=== PATIENT | male | born 1950 | race Caucasian/White ===

== ENCOUNTER → 2019-01-09 09:23 | Outpatient (CLI) | payer MEDICARE, SELFPAY ==
[2019-01-09 11:53] LABS: Ferritin 6 ng/mL (8-388)
== END ==
PROVIDERS: Visit Provider Internal Medicine Medical Oncology
DX: D50.9 Iron deficiency anemia, unspecified (principal)
CPT/HCPCS: 36415; 82728

== ENCOUNTER 2019-01-20 08:22 | Outpatient (CLI) | payer MEDICARE, SELFPAY ==
[2019-01-20 08:50] VITALS: BP 133/83; PULSE 63; RESP 18; TEMP 36.6; O2SAT 97
[2019-01-20 09:25] VITALS: BP 131/81; PULSE 68; RESP 18; O2SAT 98
== END 2019-01-20 09:31 | disposition home or self-care (01) ==
LOC: INF 08:22
PROVIDERS: Visit Provider Internal Medicine Medical Oncology
DX: D50.8 Other iron deficiency anemias (principal); T45.4X5A Adverse effect of iron and its compounds, initial encounter
CPT/HCPCS: 96365; J1439

== ENCOUNTER 2019-01-27 08:39 | Outpatient (CLI) | payer MEDICARE, SELFPAY ==
[2019-01-27 09:00] VITALS: BP 123/77; PULSE 54; RESP 18; TEMP 36.6; O2SAT 98
[2019-01-27 09:30] VITALS: BP 120/72; PULSE 56; RESP 18; O2SAT 99
[2019-01-27 09:45] VITALS: BP 119/76; PULSE 59; RESP 20; O2SAT 99
== END 2019-01-27 09:45 | disposition home or self-care (01) ==
LOC: INF 08:39
PROVIDERS: Visit Provider Internal Medicine Medical Oncology
DX: D50.9 Iron deficiency anemia, unspecified (principal); T45.4X5A Adverse effect of iron and its compounds, initial encounter
CPT/HCPCS: 96365; J1439